=== PATIENT | male | born 1970 | race Caucasian/White ===

== ENCOUNTER 2016-04-25 11:51 | Observation (INO) | payer MEDICARE ==
[~2016-04-25] VITALS: Ht 182.9 cm; Wt 253.0 kg
[2016-04-25 12:05] VITALS: BP 159/71
[2016-04-25] MEDS ORDERED: DEXTROSE ORAL GEL (GLUTOSE 40%) 15 GM TUBE PO PRN (12:05)
[2016-04-25] MEDS ORDERED: GLUCAGON EMERGENCY 1 MG/KIT IM PRN (12:05)
[2016-04-25] MEDS ORDERED: DEXTROSE 50% 25 GM/50 ML SYRINGE IV PRN (12:05)
[2016-04-25] MEDS ORDERED: ACETAMINOPHEN 325 MG TAB (TYLENOL) PO PRN (12:05)
[2016-04-25 12:38] LABS: BASOPHILS % (AUTO) 0 % (0-2); EOSINOPHILS # (AUTO) 0.2 10^3uL; EOSINOPHILS % (AUTO) 2 % (0-4); LYMPHOCYTES # (AUTO) 1.4 X10^3; MEAN CORPUSCULAR HEMOGLOBIN 30.6 PG (26.0-34.0); MEAN CORPUSCULAR HGB CONC 33.7 g/dL (31.0-37.0); MEAN CORPUSCULAR VOLUME 91 FL (80-100); MONOCYTES # (AUTO) 0.7 X10^3; MONOCYTES % (AUTO) 8 % (3-11); NEUTROPHILS # (AUTO) 6.3 X10^3; NEUTROPHILS % (AUTO) 74 % (51-67); PLATELET COUNT 256 10^3uL (150-450); WHITE BLOOD COUNT 8.56 10^3uL (4.0-11.0)
[2016-04-25 12:52] LABS: ALBUMIN 3.7 g/dL (3.4-5.0); ANION GAP 15.5 MEQ/L (3-15); CALCULATED IONIZED CALCIUM 3.9 mg/dL (3.8-4.6); MAGNESIUM* 1.5 mg/dL (1.6-2.3); TOTAL PROTEIN 7.6 g/dL (6.4-8.5)
--- NOTE | 2016-04-25 13:53 | NUR ---
Pt arrives to [facility] for admission of leg wounds. Pt alert & oriented x4, speech clear. Pt states noticed bilateral leg wounds weeping after showering "past couple of days and it smells really bad", also states "I don't want my legs cut off so I came here". Bilateral legs noted to have hardened, scaly skin, multiple bumps, slightly darkened discoloration noted, no active weeping noted at this time while pt sitting in w/c, will do complete skin assessment with admission. Pt states he also had spot on "my backside on my crack that is oozing too". See admission assessment for further info.
[2016-04-25 13:57] VITALS: BP 159/71
--- NOTE | 2016-04-25 14:55 | NUR ---
[facility] bariatric bed arrives, set up for pt.
[2016-04-25 15:00] VITALS: BP 158/94
--- NOTE | 2016-04-25 16:29 | NUR ---
MED REC COMPLETE--current med list obtained from list provided by patient's PCP (Dr. Macedo). Completed by Missy Cabrera, Pharm. D. Candidate 2017.
[2016-04-25] MEDS: INSULIN LISPRO 1 UNIT/0.01 ML (HUMALOG) DOSE SC SCH ×2 (17:30→21:00)
[2016-04-25] MEDS ORDERED: INSULIN LISPRO 1 UNIT/0.01 ML (HUMALOG) DOSE SC SCH (18:00)
--- NOTE | 2016-04-25 18:13 | NUR ---
BS OF [address] RENTERIA STATES IF PATIENT EATS WELL CAN GIVE THE 30 UNITS. PATIENT INFORMED.
--- NOTE | 2016-04-25 18:37 | NUR ---
ATE WELL. INSULIN GIVEN.
--- NOTE | 2016-04-25 20:00 | NUR ---
Pt is resting in recliner, in pleasant mood. Alert and oriented x4, does continue to have open wounds to bilateral lower extremities, some are weeping clear yellow drainage. Encouraged pt to keep legs elevated, verbalizes understanding at this time. SL is patent, no redness, swelling, or s/s of infection noted at this time. Denies pain or discomfort at this time. Call light is in reach, will continue to monitor. Addendum: 04/25/16 at 2117 by Ileana Ellison RN During assessment pt reported to RN that sometimes his blood sugar bottoms out in the clinical specialist, reports that he can tell when he is low.
--- NOTE | 2016-04-25 20:55 | NUR ---
Pt is upset about insulin orders, this RN speaks with pt. Pt states, "I take 36 units of Humalog at breakfast, 34 units of Humalog at lunch, and 32 units of Humalog at dinner. I take it before meals, it doesn't matter what my BS is. That is all I take, I don't take any sliding insulin, and I won't be taking it here. I see a diabetic specialist in [place] that prescribed this for me and if you can't get it right I will be checking myself out of this place." This RN tried to explain that his BS was 114 when he was checked before dinner time, and that we wanted to be sure that he was going to eat before we gave him 30 units of Humalog insulin, because we did not want him to bottom out. Also explained that we had not checked his HS blood sugar yet, so we do not even know if he would need the sliding scale insulin. Pt becomes even more frustrated and yells, "I have been taking this medication the same way for years, get it fixed or I'm leaving. This RN removes herself from situation, by explaining she would speak with Dr. Jones and that I would check back with him later.
[2016-04-25] MEDS ORDERED: NICOTINE 21 MG (NICODERM) PATCH TD PRN (21:00)
--- NOTE | 2016-04-25 22:10 | NUR ---
When giving pt his HS medication, he apologized to this RN for his earlier frustration. This RN assured pt that it was ok, and that I had spoken with the Dr and had his Insulin changed to what he takes at home. Pt was happy about this, and is in a pleasant mood at this time. Will continue to monitor.
[2016-04-25] MEDS: LIRAGLUTIDE 18 MG/3 ML SC SCH (22:53)
[2016-04-26 00:02] VITALS: BP 188/86
--- NOTE | 2016-04-26 04:24 | NUR ---
Pt has been sitting up in recliner awake this shift. Pt continues to wear home clothing and shoes at this time. Pt has not been keeping his elevated during this shift. Call light is in reach, will continue to monitor.
[2016-04-26] MEDS: PANTOPRAZOLE 40 MG (PROTONIX) TAB PO SCH (06:07)
[2016-04-26 06:19] LABS: BASOPHILS % (AUTO) 0 % (0-2); EOSINOPHILS # (AUTO) 0.2 10^3uL; EOSINOPHILS % (AUTO) 3 % (0-4); LYMPHOCYTES # (AUTO) 1.8 X10^3; MEAN CORPUSCULAR HEMOGLOBIN 30.5 PG (26.0-34.0); MEAN CORPUSCULAR HGB CONC 33.3 g/dL (31.0-37.0); MEAN CORPUSCULAR VOLUME 92 FL (80-100); MEAN PLATELET VOLUME 9.3 FL (6.0-9.5); MONOCYTES # (AUTO) 0.7 X10^3; MONOCYTES % (AUTO) 8 % (3-11); NEUTROPHILS # (AUTO) 5.4 X10^3; NEUTROPHILS % (AUTO) 66 % (51-67); PLATELET COUNT 244 10^3uL (150-450); WHITE BLOOD COUNT 8.15 10^3uL (4.0-11.0)
[2016-04-26] MEDS ORDERED: INSULIN REGULAR 1 UNIT/0.01 ML DOSE SC SCH ×5 (07:00→17:30)
[2016-04-26 07:20] LABS: ALBUMIN 3.1 g/dL (3.4-5.0); ANION GAP 11.8 MEQ/L (3-15); MAGNESIUM* 1.4 mg/dL (1.6-2.3); PHOSPHORUS 4.9 mg/dL (2.4-4.9)
[2016-04-26 08:15] VITALS: BP 159/80
[2016-04-26] MEDS: ENOXAPARIN 40 MG/0.4 ML (LOVENOX) SYR SC SCH (09:00)
--- NOTE | 2016-04-26 09:10 | NUR ---
WOUND CARE NURSE AT BEDSIDE
[2016-04-26] MEDS: lisINopril 20 MG (PRINIVIL) TABLET PO SCH (09:46)
[2016-04-26] MEDS: ALLOPURINOL 300 MG (ZYLOPRIM) TAB PO SCH (09:46)
[2016-04-26] MEDS: ASPIRIN 81 MG CHEW (CHILDREN'S ASA) PO SCH (09:46)
--- NOTE | 2016-04-26 10:00 | NUR ---
BLOODS SUGAR 270
--- NOTE | 2016-04-26 10:21 | NUR ---
This 46 year old male with lymphedema characteristics has open wounds of each lower leg. History of diabetes. Note several raw, open sites of Right lower posterior aspect, located within an area of moist, white substance. Entire area of dry, brown lymphedema skin extends length of 20 cm with moist area noted within this site. Serosanguineous exudate is noted on posterior surface of ankle sock. Area is malodorous. Skin folds, multiple, are tender to touch. Reports are "raw in between" per report to him. The Left lower posterior/lateral aspect leg has several raw sites, no active exudate. Each foot has dry, scaly patches on plantar aspect, improved per patient report since vinegar solution and Amlactin cream used. Now does feet every other day following shower at home. No maceration noted between toes of either foot. Recommend: Shower ( present to assist per patient request), then use daily wraps with towel moistened with Acetic Acid solution ( using 1 cup vinegar/10 cups water at home on feet). This typewriter assembly and parts inspector will examine later today to determine wound dressing type needed.
--- NOTE | 2016-04-26 10:28 | NUR ---
NUTRITION ASSESSMENT Level 1 Patient: Franklin Olivia Age/Sex: 46/M Date Screened: 04-26-16 Weight: 566.5#/257.5 kg Height: 72 inches Primary Diagnosis: leg wounds Diet Order: medium diabetic Relevant labs: glucose 255, magnesium 1.4 Food allergies: N Nutrition Assessment Criteria Age over 80: N Body Mass Index (BMI) under 19: N Admission Screening Indicates Risk? 3 points Moderate/High Risk Diagnosis: 6 points TPN or PPN: N NPO or clear liquid diet: N Serum Glucose <70 or >180: 3 points Hgb A1c >6.7: N/A Total: 12 points Risk Screen: __ Patient at low nutritional risk based on available data; reevaluate in 5-7 days __ Patient at moderate nutritional risk based on available data; reevaluate in 3-5 days _X_ Patient at high nutritional risk; complete Nutrition Assessment within 48 hours of admission.
--- NOTE | 2016-04-26 10:46 | NUR ---
REQUEST IV OUT. DR. RENTERIA STATES MAY REMOVE.
--- NOTE | 2016-04-26 11:30 | NUR ---
up to shower
--- NOTE | 2016-04-26 12:00 | NUR ---
REPORTS WANTS TO TAKE HIS OWN INSULIN THAT IS 500 UNITS/ML INSTEAD OF THE HOSPITAL'S 100UNITS/ML. PHARMACY NOTIFIED AND STATES WILL TALK TO AND PATIENT.
--- NOTE | 2016-04-26 12:11 | NUR ---
NUTRITION ASSESSMENT Level II Patient: Franklin Olivia Age/Sex: 46/M Date Assessed: 04-26-16 ASSESSMENT Pertinent History: Patient admitted with leg wounds and screened at high nutritional risk secondary to diagnosis and uncontrolled diabetes , as well as unintentional weight gain. PMHx includes asthma, gout, GERD, HTN and diabetes. He lives at home with his . Pt. was on an insulin pump prior but it didnt work well for him, so he DCd it and now takes insulin with meals. He has an extensive hx. of weight loss with various diets followed by weight regain, and currently eats what he wants at home, though he denies eating excessive amounts of food. No weight hx. is available other than patients report of 25# weight gain. Meds/Nutrition: Regular insulin, Protonix, Victoza Weight: 566.5#/257.5 kg Height: 72 inches Body Mass Index (BMI): 77.0 [place] Body Weight : 178#/80.9 kg % IBW: 318% GASTROINTESTINAL Appetite: good, eating 100% Diet Order: medium diabetic Unintentional loss of >10 lbs. in 3 months: N Difficult to chew/swallow: N Diabetes: Yes Relevant Labs: glucose 255, magnesium 1.4 Calculations for Nutritional Assessment Estimated calorie needs: 2,000-3,000 kcals/day (REE is ~4,000) Estimated protein needs: 1.0-1.1 g/kg ABW = 125-137 g./day DIAGNOSIS 1. Nutrition Diagnosis: Increased protein needs related to leg wounds as evidenced by venous stasis dermatitis with severe acanthosis nigricans. 2. Nutrition Diagnosis: Altered nutrition-related lab values (glucose) related to endocrine dysfunction as evidenced by blood glucose >200 consistently. 3. Nutrition Diagnosis: Morbid obesity related to excessive intake as evidenced by BMI 77.0 with hx. yo-yo dieting and failure to maintain weight loss. NUTRITIONAL INTERVENTION Goal: Patient will receive adequate nutrition to meet his needs while hospitalized. Plan: Recommend large diabetic diet to better meet patients nutritional needs rather than medium diabetic. Emphasize protein with minimum recommended intake 125 g./day as calculated above. Bariatric surgery may be a consideration for him to assist with weight loss in the outpatient setting. MONITORING & EVALUATION _X_ Monitor patients menu selections _X_ Monitor patients food intake per nursing notes __ Monitor NPO/clear liquid days _X_ Monitor lab values __ Monitor I&O __ Other
--- NOTE | 2016-04-26 15:38 | NUR ---
Presented the SALAZ[employer] form to Pt. Pt. verbalized understanding and signed and dated the form. Pt. was given a copy of the form and the original was placed in the chart.
[2016-04-26 16:44] VITALS: BP 156/69
[2016-04-26] MEDS ORDERED: AMMONIUM LACTATE 12% TOP SCH (17:00)
--- NOTE | 2016-04-26 17:00 | NUR ---
Each lower extremity examined following shower of this a.m. & acetic acid solution compress bilaterally of this afternoon. [place] skin folds are more visible while rests in bed. Cobblestone effect remains of each lower extremity. The left lower extremity has no evidence of wound exudate currently. The right lower extremity has several raw, pink sites with no active exudate. A nonadherent wound dressing ( Xeroform) is applied to the raw sites of the right lower extremity, covered with ABD, secured with a tubular retainable net. ( Spandage size MT 11, XXL) Change daily and prn soiled/strikethrough. This medical technical writer offers to apply Amlactin to each foot, plantar aspect, as is now available. Patient reports does not want this done at this time. Information given that needs to apply Amlactin ( used every other day at home) as ordered, then when dry, scaly substance resolved, should use moisturizing cream to feet daily & prn. Moisturizing cream may be used daily to each lower extremity ( excluding raw sites) daily as well. Education given to pull net upward if notices slipping downward. Skin fold education given and verbalizes understanding. ( Skin fold hygiene 2x daily, especially during summer months; keep skin folds with dry, soft 100% cotton cloth as needed.) Patient reports will be going to a wound clinic for exam following hospital dismissal.
[2016-04-26] MEDS: INSULIN LISPRO 1 UNIT/0.01 ML (HUMALOG) DOSE SC SCH ×2 (17:30→20:47)
[2016-04-26] MEDS: MAGNESIUM OXIDE 400 MG (MAG-OX) TAB PO SCH (18:26)
[2016-04-26] MEDS: LIRAGLUTIDE 18 MG/3 ML SC SCH (20:31)
[2016-04-27 00:19] VITALS: BP 139/77
[2016-04-27] MEDS: PANTOPRAZOLE 40 MG (PROTONIX) TAB PO SCH (06:04)
[2016-04-27 06:18] LABS: BASOPHILS % (AUTO) 0 % (0-2); EOSINOPHILS # (AUTO) 0.2 10^3uL; EOSINOPHILS % (AUTO) 3 % (0-4); LYMPHOCYTES # (AUTO) 1.7 X10^3; MEAN CORPUSCULAR HEMOGLOBIN 30.3 PG (26.0-34.0); MEAN CORPUSCULAR HGB CONC 33.4 g/dL (31.0-37.0); MEAN CORPUSCULAR VOLUME 91 FL (80-100); MEAN PLATELET VOLUME 9.1 FL (6.0-9.5); MONOCYTES # (AUTO) 0.6 X10^3; MONOCYTES % (AUTO) 8 % (3-11); NEUTROPHILS # (AUTO) 5.3 X10^3; NEUTROPHILS % (AUTO) 67 % (51-67); PLATELET COUNT 275 10^3uL (150-450); WHITE BLOOD COUNT 7.96 10^3uL (4.0-11.0)
[2016-04-27 06:30] LABS: ALBUMIN 3.6 g/dL (3.4-5.0); ANION GAP 13.3 MEQ/L (3-15); MAGNESIUM* 1.8 mg/dL (1.6-2.3); PHOSPHORUS 5.1 mg/dL (2.4-4.9)
--- NOTE | 2016-04-27 06:34 | NUR ---
Patient rests in chair throughout night without needs. Up ad zoraida in room. No reports of pain. No needs at this time.
[2016-04-27] MEDS ORDERED: INSULIN REGULAR 1 UNIT/0.01 ML DOSE SC SCH ×2 (07:30→12:00)
[2016-04-27] MEDS: INSULIN LISPRO 1 UNIT/0.01 ML (HUMALOG) DOSE SC SCH ×2 (07:30→11:30)
[2016-04-27 07:56] VITALS: BP 123/68
[2016-04-27] MEDS: ALLOPURINOL 300 MG (ZYLOPRIM) TAB PO SCH (10:28)
[2016-04-27] MEDS: MAGNESIUM OXIDE 400 MG (MAG-OX) TAB PO SCH (10:29)
[2016-04-27] MEDS: ASPIRIN 81 MG CHEW (CHILDREN'S ASA) PO SCH (10:29)
[2016-04-27] MEDS: lisINopril 20 MG (PRINIVIL) TABLET PO SCH (10:29)
[2016-04-27] MEDS: ENOXAPARIN 40 MG/0.4 ML (LOVENOX) SYR SC SCH (10:31)
--- NOTE | 2016-04-27 14:20 | NUR ---
Demonstrated vinegar soak to the patient's .
--- NOTE | 2016-04-27 14:35 | NUR ---
Demonstrated dressing application to the patient's . Gave opportunity for her to ask questions.
--- NOTE | 2016-04-27 15:10 | NUR ---
Gave the patient and his discharge instructions. No new scripts were issued. Informed the patient to call Friday for follow up with [facility] and Dr. Macedo. Patient demonstrated verbal understanding.
--- NOTE | 2016-04-27 15:17 | NUR ---
Patient dismissed per wheelchair accompanied by 2CNA's and his . Sent 2 applications of xeroform dressing, and extra stockenette to hold dressing in place. Also sent a graduate and nearly a full container of vinegar for daily soaks.
== END 2016-04-27 15:17 | disposition home or self-care (01) ==
LOC: MED/SURG 11:51
PROVIDERS: ADMIT Family Medicine; ATTEND Family Medicine
DX: I87.2 Venous insufficiency (chronic) (peripheral) (principal); S81.802A Unspecified open wound, left lower leg, initial encounter; S81.801A Unspecified open wound, right lower leg, initial encounter; I89.0 Lymphedema, not elsewhere classified; L83 Acanthosis nigricans; L91.8 Other hypertrophic disorders of the skin; E11.9 Type 2 diabetes mellitus without complications; E66.9 Obesity, unspecified; Z68.45 Body mass index [BMI] 70 or greater, adult; I10 Essential (primary) hypertension; J45.909 Unspecified asthma, uncomplicated; M10.9 Gout, unspecified; X58.XXXA Exposure to other specified factors, initial encounter
CPT/HCPCS: 36415; 80053; 80069; 83735; 85025; 86140; 87040; 97161; 97530; A9270; G0378; J1815; 99218

== ENCOUNTER → 2016-07-03 | Outpatient (CLI) | payer MEDICARE ==
[~2016-07-03] MED LIST: ALBU8.5H2 IH; ALLO300T2 PO; ASP81CT PO; CHOL100045 PO; FLUC100T6 PO; INSU500V SQ; LANS30CA14 PO; LIRA0.6P2 SQ; LSNP20T PO; MULT-955 PO; ROSU40TA PO; SITA100T PO
--- NOTE | 2016-07-03 11:59 | Diagnostic Imaging Report ---
PROCEDURE: US abdomen complete. TECHNIQUE: Multiple real-time grayscale images were obtained over the abdomen in various projections. INDICATION: Abdominal distention and swelling. COMPARISON: None available. FINDINGS: Examination is limited due to patient's large body habitus/obesity. Visualized portions of the liver demonstrate diffuse increased echogenicity with poor through sound transmission. This is indicative of diffuse hepatic steatosis. The poor through sound transmission limits evaluation for focal hepatic lesion. The main portal vein is patent with antegrade flow. Gallbladder is distended with multiple small mobile gallstones. No pericholecystic fluid or gallbladder wall thickening. The common bile duct is not well seen, but where visualized is normal in caliber measuring 0.2 cm. Pancreas is poorly evaluated as it is obscured by bowel gas and patient's large body habitus. The spleen was unable to be visualized due to patient's body habitus. Aorta and IVC were poorly visualized due to patient's body habitus and bowel gas. Both kidneys are identified and demonstrate no hydronephrosis. IMPRESSION: 1. Limited examination due to patient body habitus. 2. Diffuse hepatic steatosis. This limits evaluation for focal hepatic lesions due to poor sound penetration. 3. Cholelithiasis. No secondary findings to suggest acute cholecystitis. Dictated by: Dictated on workstation # [id number]
== END ==
LOC: RAD 09:12
PROVIDERS: ATTEND Family Medicine
DX: R14.0 Abdominal distension (gaseous) (principal); K76.0 Fatty (change of) liver, not elsewhere classified; K80.20 Calculus of gallbladder without cholecystitis without obstruction
CPT/HCPCS: 76700